=== PATIENT | male | born 1930 | race Caucasian/White ===

== ENCOUNTER → 2017-02-16 | Outpatient (CLI) | payer MEDICARE, BC ==
[~2017-02-16] MED LIST: AMIODARONE HCL100 MG PO; ASPIRIN EC325 MG PO; ASPIRIN325 MG PO; CARAFATE1 GM PO; DEXILANT60 MG PO; FLOMAX0.4 MG PO; LOPRESSOR100 MG PO; LOPRESSOR12.5 MG/0. PO; LOPRESSOR25 MG PO; MAG-OX-400(241400 MG PO; MYCOSTATIN(NYST15 GM TOP; NEUTRA-PHOS (PHO1 EA PO; NIACOR500 MG PO; PLAVIX75 MG PO; PRAVACHOL40 MG PO; PRAVACHOL80 MG PO; PRILOSEC20 MG PO; SODIUM BICARBO650 MG PO; TYLENOL EXTRA500 MG PO; VITAMIN D1000 UNI1 PO; ZANTAC (NON-FO150 MG PO; ZOFRAN4 MG PO
[2017-02-16 16:22] LABS: ALBUMIN 3.7 gm/dL (3.5-5.0); TOTAL BILIRUBIN 0.4 mg/dL (0.0-1.5); TOTAL PROTEIN 7.7 g/dL (6.0-8.4)
== END | disposition disaster alternative care site (69) ==
LOC: LCNC 15:54
PROVIDERS: Internal Medicine Interventional Cardiology
DX: Z51.81 Encounter for therapeutic drug level monitoring (principal); Z79.899 Other long term (current) drug therapy

== ENCOUNTER → 2017-04-23 | Outpatient (CLI) | payer MEDICARE, BC | END | disposition disaster alternative care site (69) | LOC: GRAD 15:22 | DX: M54.30 Sciatica, unspecified side (principal); M41.9 Scoliosis, unspecified; M51.36 Other intervertebral disc degeneration, lumbar region; M12.9 Arthropathy, unspecified; M48.06 Spinal stenosis, lumbar region; M51.26 Other intervertebral disc displacement, lumbar region ==